=== PATIENT | male | born 1970 | race Caucasian/White ===

== ENCOUNTER 2016-12-05 18:07 | Emergency (ER) | payer BC, OTHER ==
[~2016-12-05] VITALS: Ht 182.9 cm; Wt 116.6 kg
[~2016-12-05 18:07] MED LIST: ALBUAER19 INH; GABA1CAP PO; nasal saline
[2016-12-05 18:15] VITALS: Ht 182.9 cm; Wt 116.6 kg
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
[2016-12-05 18:54] LABS: MEAN CELL VOLUME 84.2 fL (80-100); MEAN CORPUSCULAR HEMOGLOBIN 28.2 pg (25-34); MEAN CORPUSCULAR HGB CONC 33.5 g/dl (32-36); MEAN PLATELET VOLUME 9.4 fL (7.4-10.4); PLATELET COUNT 229 K/uL (130-400); RED BLOOD COUNT 4.75 M/uL (4.7-6.1); WHITE BLOOD COUNT 6.16 K/uL (4.8-10.8)
[2016-12-05 19:04] LABS: INR 1.9 (0.9-1.1); PARTIAL THROMBOPLASTIN RATIO 1.4; PROTHROMBIN TIME (PATIENT) 21.4 SECONDS (9.0-12.0)
[2016-12-05 19:13] LABS: BUN/CREATININE RATIO 18.8 (10-20); CALCIUM 8.4 mg/dl (8.5-10.1); CREATININE 0.94 mg/dl (0.60-1.40); POTASSIUM 3.8 mmol/L (3.5-5.1)
[2016-12-05] MEDS ORDERED: OPTIRAY 320 IV PRN (19:45)
--- NOTE | 2016-12-05 20:17 | DIAGNOSTIC IMAGING REPORT ---
CT OF THE CHEST WITH IV CONTRAST CLINICAL HISTORY: Chest trauma. Left sided rib pain following fall. COMPARISON STUDY: Chest CT April 21, 2013. TECHNIQUE: Following IV administration of 116 mL of Optiray-320, helical axial images of the chest were obtained. Images were viewed in the axial, sagittal and coronal planes. IV contrast was administered without complication. FINDINGS: There is no evidence of traumatic injury to the thoracic aorta. The heart is mildly enlarged. There is no pericardial effusion. No enlarged thoracic lymph nodes are present. There is no pneumothorax or pleural effusion. No acute rib or thoracic spine fracture is identified. Mosaic attenuation within lungs could reflect air trapping. No pulmonary contusion is present. IMPRESSION: No acute traumatic findings within the chest. Electronically signed by: Pato Victor M.D. 12/05/2016 8:15 PM Dictated Date/Time: 12/05/2016 8:07 PM
--- NOTE | 2016-12-05 20:28 | DIAGNOSTIC IMAGING REPORT ---
ADDENDUM Addendum: The 1 cm left upper lobe nodule is not well depicted on the chest CT due to significant respiratory motion. Therefore, a dedicated CT of the chest is recommended to reevaluate this nodule. Electronically signed by: Pato Victor M.D. 12/10/2016 10:09 AM Dictated Date/Time: 12/10/2016 10:[address] OF THE ABDOMEN AND PELVIS WITH CONTRAST CLINICAL HISTORY: Fall. COMPARISON STUDY: CT of the abdomen and pelvis December 03, 2013. TECHNIQUE: Following IV administration of 116 mL of Optiray-320, axial images of the abdomen and pelvis were obtained from the lung bases to the proximal femurs. Images were reviewed in the axial, sagittal, and coronal planes. IV contrast was administered without complication. CT DOSE: 2437.45 mGy.cm FINDINGS: No hemoperitoneum is present. There is no pneumoperitoneum. There is fatty infiltration of the liver. The spleen, adrenal glands, left kidney and pancreas are normal. Note is made of a 2.8 cm low-attenuation cystic lesion within the mid to lower pole of the right kidney. This contains a thickened septation. This septation is enhancing. The visualized portions of the lower chest demonstrate a 1 cm left upper lobe nodule shown on image 4 of 531. This is suboptimally assessed on this exam due to respiratory motion. This is likely increased in size since prior exams. There is no evidence for a bowel obstruction. No acute lumbar spine or pelvic fracture is identified. IMPRESSION: 1. No acute traumatic findings within the abdomen or pelvis. 2. 2.8 cm cystic lesion within the lower pole of the right kidney with a thickened septation. This is new since prior exam. This could reflect a cystic renal cell carcinoma or a complex cyst. A follow-up nonemergent renal protocol CT is recommended. 3. 1 cm left upper lobe nodule which is suboptimally assessed on this exam due to respiratory motion on the chest CT. This is likely increased in size since prior exams. A follow-up dedicated CT of the chest is recommended. Electronically signed by: Pato Vitcor M.D. 12/05/2016 8:27 PM Dictated Date/Time: 12/05/2016 8:18 PM
[2016-12-05 21:06] LABS: MANUAL MICROSCOPIC REQUIRED? NO; REVIEW REQ? NO; URINE APPEARANCE CLEAR (CLEAR); URINE BILIRUBIN NEG (NEG); URINE COLOR YELLOW; URINE NITRITE NEG (NEG); URINE SPECIFIC GRAVITY > 1.045 (1.000-1.030); UROBILINOGEN NEG (NEG)
[2016-12-05 21:23] VITALS: BP 135/88; PULSE 81; TEMP 37; O2SAT 98
[2017-02-01] MEDS ORDERED: LOSA1TAB38 PO (15:22)
[2017-02-01] MEDS ORDERED: PRAV40TA2 PO (17:03)
[2017-02-01] MEDS ORDERED: DILT240C57 PO (17:03)
[2017-02-01] MEDS ORDERED: SITA50TA5 PO (17:03)
[2017-02-01] MEDS ORDERED: B-COTAB18 PO (17:03)
[2017-02-01] MEDS ORDERED: GLIM2TAB2 PO (17:03)
[2017-02-01] MEDS ORDERED: ALPH1TAB PO (17:03)
[2017-02-01] MEDS ORDERED: WARF4TAB44 PO (17:06)
[2017-02-01] MEDS ORDERED: WARF-286 PO (17:06)
[2017-02-01] MEDS ORDERED: GABA-113 PO ×3 (18:40→18:44)
[2017-02-01] MEDS ORDERED: DULO-24 PO (18:42)
[2017-02-01] MEDS ORDERED: MULT-506 PO (19:26)
[2017-02-01] MEDS ORDERED: MAGN400T6 PO (19:26)
[2017-02-01] MEDS ORDERED: TRIA3AER NAE (19:26)
[2017-02-01] MEDS ORDERED: COLE625T PO (19:26)
== END 2016-12-05 21:33 | disposition home or self-care (01) ==
LOC: EDBD 18:07 → C.EDC 18:08
DX: S20.212A Contusion of left front wall of thorax, initial encounter (principal); W01.0XXA Fall on same level from slipping, tripping and stumbling without subsequent striking against object, initial encounter; E11.43 Type 2 diabetes mellitus with diabetic autonomic (poly)neuropathy; D68.51 Activated protein C resistance; Z91.81 History of falling; Z86.718 Personal history of other venous thrombosis and embolism; I10 Essential (primary) hypertension; Z83.3 Family history of diabetes mellitus; Z82.49 Family history of ischemic heart disease and other diseases of the circulatory system; Z79.01 Long term (current) use of anticoagulants; Z79.899 Other long term (current) drug therapy; N28.1 Cyst of kidney, acquired

== ENCOUNTER 2017-02-01 20:37 | Emergency (ER) | payer BC, OTHER ==
[~2017-02-01] VITALS: Ht 182.9 cm; Wt 113.7 kg
[~2017-02-01 20:37] MED LIST changes: -ALBUAER19 INH; +ALPH1TAB PO; +B-COTAB18 PO; +COLE625T PO; +DILT240C57 PO; +DULO-24 PO; +GABA-113 PO; -GABA1CAP PO; +GLIM2TAB2 PO; +LOSA1TAB38 PO; +MAGN400T6 PO; +MULT-506 PO; +PRAV40TA2 PO; +SITA50TA5 PO; +TRIA3AER NAE; +WARF-286 PO; +WARF4TAB44 PO; -nasal saline
[2017-02-01 20:40] VITALS: BP 139/89; PULSE 78; TEMP 36.5; O2SAT 94; Ht 182.9 cm; Wt 113.7 kg
[2017-02-01] MEDS ORDERED: XYLOCAINE 1%/SOD BICARB 20 ML VIAL INFIL ONE (21:00)
[2017-02-01] MEDS ORDERED: CEPHALEXIN MONOHYDRATE 250 MG CAP PO ONE (21:00)
[2017-02-01] MEDS ORDERED: CEPHALEXIN 500MG HOME PACK 1 EA BTL PO ONE (21:00)
[2017-02-01] MEDS ORDERED: CEPH500C2 PO (21:17)
--- NOTE | 2017-02-01 23:26 | EMERGENCY ROOM VISIT NOTE ---
History Report prepared by Branden: Za Heredia Under the Supervision of: Dr. Sunil Duron D.O. First contact with patient: 20:51 Chief Complaint: LACERATION/CUT (SUT/DERMABOND) Stated Complaint: CUT L INDEX FINGER - ON BLOOD THINNERS Nursing Triage Summary: pt cut his left index finger opening a can of green beans History of Present Illness The patient is a 46 year old male who presents to the Emergency Room with complaints of an episode of a laceration on his left index finger occurring prior to arrival. The patient states he was making dinner when he cut his finger on a can of green beans. He reports that he ran it under cold water, applied pressure, and held it above his head. He states that this helped with the bleeding. The patient notes that he came to the ED for it because he is on Coumadin for factor five. He notes a history of cellulitis, diabetes, high blood pressure, and high cholesterol. The patient denies any other symptoms currently occurring. Source of History: patient Onset: prior to arrival Position: finger(s) (left index) Timing: other (episode) Modifying Factors (Relieving): other (running it under cold water, pressure , and elevation) Note: The patient denies any other symptoms currently occurring. Review of Systems See HPI for pertinent positives & negatives. A total of 6 systems reviewed and were otherwise negative. Past Medical & Surgical Medical Problems: (1) Anticoagulants,Lt,Current Use (2) Wili Def Clot Factor Nec (3) Diab Genesis Wo Compl, Type Ii Or Unspec Type, Not Uncntrld (4) Diabetes (5) Diabetic peripheral neuropathy associated with type 2 diabetes mellitus (6) Dysesthesia (7) Factor 5 Leiden mutation, heterozygous (8) Falls (9) High cholesterol (10) Hx-Venous Thrombosis&Embolism (11) Hypertension (12) Hypertension Nos (13) Loss of sensation Family History Diabetes mellitus Hypertension Social History Smoking Status: Never Smoker Alcohol Use: none Drug Use: none Marital Status: Housing Status: lives with family Occupation Status: employed Current/Historical Medications Scheduled Alpha-Lipoic Acid (Thioctic Ac (Alpha Lipoic Acid), 100 MG PO DAILY B-Complex Vitamins (Vitamin B Complex), 1 TAB PO DAILY Cephalexin Monohydrate (Keflex), 500 MG PO QID Colesevelam (Welchol), 1,250 MG PO BID Diltiazem Hcl Coated Beads (Cardizem Cd), 240 MG PO DAILY Duloxetine HCl (Cymbalta), 60 MG PO QPM Gabapentin (Neurontin), 600 MG PO QAM Gabapentin (Neurontin), 900 MG PO NOON Gabapentin (Neurontin), 600 MG PO BID Glimepiride (Glimepiride), 2 MG PO DAILY Losartan Potassium (Cozaar), 100 MG PO QPM Magnesium Oxide (Mag-Ox), 400 MG PO BID Multivitamin (Multivitamin), 1 TAB PO DAILY Pravastatin Sodium (Pravastatin Sodium), 40 MG PO DAILY Sitagliptin-Metformin Hcl (Janumet), 1 TAB PO BID Triamcinolone Acet (Nasacort-Aq Nasal Inh), 2 SPRAYS JAMES DAILY Warfarin Sodium (Warfarin Sodium), 6 MG PO DAILY Warfarin Sodium (Warfarin Sodium), 1 MG PO DAILY Allergies Coded Allergies: No Known Allergies (Verified , 12/05/16) Physical Exam Vital Signs Date Time Temp Pulse Resp B/P Pulse Ox O2 Delivery O2 Flow Rate FiO2 02/01/17 20:40 36.5 78 18 139/89 94 Room Air Physical Exam GENERAL: Patient is awake, alert, and in no acute distress. Patient is resting comfortably and showing no signs of anxiety EYES: The conjunctivae are clear. The pupils are round and reactive. EARS, NOSE, MOUTH AND THROAT: The nose is without any evidence of any deformity. Mucous membranes are moist tongue is midline RESPIRATORY: Normal respiratory effort is noted there is no evidence of wheezing rhonchi or rales CARDIOVASCULAR: Regular rate and rhythm noted there no murmurs rubs or gallops normal S1 normal S2 GASTROINTESTINAL: The abdomen is soft. Bowel sounds are present in all quadrants. Abdomen is nontender MUSCULOSKELETAL/EXTREMITIES: There is no evidence of gross deformity full range of motion is noted in the hips and shoulders SKIN: There is no obvious evidence of any rash. There are no petechiae, pallor or cyanosis noted. 1 cm flap laceration over radial aspect of left index finger , no active bleeding or gross contamination. NEUROLOGIC: Patient is awake alert and oriented x3 strength is symmetric patellar reflexes are 2+ bilaterally Medical Decision & Procedures Medications Administered Medications (Trade) Dose Ordered Sig/Robyn Route Start Time Stop Time Status Last Admin Dose Admin Cephalexin Monohydrate (Keflex 500MG Home Pack) 1 homepack NOW ONCE PO 5/27/17 21:00 02/01/17 21:01 DC 02/01/17 21:23 1 HOMEPACK Cephalexin Monohydrate (Keflex Cap) 500 mg NOW ONCE PO 02/01/17 21:00 02/01/17 21:01 DC 02/01/17 21:23 500 MG Procedure Location: Left index finger Total length: 1 cm Complexity: Low Verbal consent was obtained after the risks and benefits were explained, including but not limited to bleeding, scarring, infection, pain, and bone/joint /nerve damage. At this time, the risks of the procedure are less than the risks of NOT performing the procedure. A time out was taken and the correct patient and site identified. The skin was prepped with betadine. Digital block was one on the left index finger using 3 mls of 1% Lidocaine without epinephrine. Copious irrigation was performed using normal saline solution. The skin was re- prepped with betadine and a sterile field set. The wound was explored for foreign bodies and none found. Examination revealed no injury to deep structures such as tendons, bone, or significant blood vessels. Debridement was not performed. The wound edges were approximated using 6 simple interrupted sutures using 5.0 nylon. Hemostasis and excellent approximation was achieved. Antibacterial ointment and a sterile dressing applied. Detailed wound care instructions and signs and symptoms of infection reviewed with the patient. No complications and the patient tolerated the procedure well. ED Course 2052: The patient was evaluated in room D4. A complete history and physical examination were performed. A laceration repair was performed at bed side. 2099: Ordered Keflex Tab 500 mg PO, Keflex 500 mg Home Pack PO, Lidocaine HCl 20 ml INFIL. 2126: I discussed the treatment plan with him. The patient verbalized agreement of the treatment plan. He was discharged home. Medical Decision Nursing notes reviewed. Differential diagnosis this patient could include laceration, contamination, foreign body, deep tissue structure injury and other differential diagnoses were considered. The patient is a 46-year-old male who presented to the emergency department for an evaluation of a laceration to his left index finger. The laceration had good hemostasis however the patient is on Coumadin and I was concerned that he may continue to bleed. The patient had a laceration anesthetized using a digital block and the laceration was repaired in usual fashion. He tolerated this procedure well. He was given follow-up instructions for wound care as well as suture removal. He was encouraged to follow-up for suture removal in 7-10 days but return to the emergency department immediately if symptoms change worsen or the need arises. Impression Primary Impression: Laceration of left index finger Scribe Attestation The scribe's documentation has been prepared under my direction and personally reviewed by me in its entirety. I confirm that the note above accurately reflects all work, treatment, procedures, and medical decision making performed by me. Departure Information Dispostion Home / Self-Care Prescriptions Cephalexin Monohydrate (KEFLEX) 500 Mg Cap 500 MG PO QID, #20 CAP Prov: Sunil Duron, 02/01/17 Referrals Kolby Santamaria MD (PCP) Forms HOME CARE DOCUMENTATION FORM, IMPORTANT VISIT INFORMATION Patient Instructions My [facility] Additional Instructions Continue all medications as prescribed. Have the sutures removed in 7 days. Return to the emergency department for any signs of infection or if need arises.
== END 2017-02-01 21:27 | disposition home or self-care (01) ==
LOC: C.EDB 20:38 → C.EDD 21:27
DX: S61.211A Laceration without foreign body of left index finger without damage to nail, initial encounter (principal); W26.8XXA Contact with other sharp object(s), not elsewhere classified, initial encounter; Y93.G1 Activity, food preparation and clean up; D68.51 Activated protein C resistance; E11.40 Type 2 diabetes mellitus with diabetic neuropathy, unspecified; I10 Essential (primary) hypertension; E78.5 Hyperlipidemia, unspecified; Z79.01 Long term (current) use of anticoagulants; Z86.718 Personal history of other venous thrombosis and embolism; Z83.3 Family history of diabetes mellitus; Z82.49 Family history of ischemic heart disease and other diseases of the circulatory system